=== PATIENT | male | born 1980 | race Caucasian/White ===

== ENCOUNTER 2021-02-16 05:36 | Inpatient (IN) | payer OTHER ==
[~2021-02-16] VITALS: Ht 165.1 cm; Wt 70.0 kg
[2021-02-16 06:02] LABS: COVID AG,FIA SOURCE NASOPHARYNGEAL
[2021-02-16 06:16] LABS: BASOPHILS % (AUTO) 0.6 % (0.0-2.0); EOSINOPHILS % (AUTO) 1.7 % (1.0-6.0); HEMATOCRIT 45.6 % (41-53); HEMOGLOBIN 14.8 g/dL (13.5-17.5); LYMPHOCYTES % (AUTO) 24.9 % (22.0-44.0); MEAN CORPUSCULAR HEMOGLOBIN 28.5 pg (26.0-34.0); MEAN CORPUSCULAR HGB CONC 32.5 G/dL (31.0-37.0); MEAN CORPUSCULAR VOLUME 88 fL (80-100); MONOCYTES # (AUTO) 0.7 K/uL (0.1-1.0); MONOCYTES % (AUTO) 8.5 % (2.0-9.0); NEUTROPHILS # (AUTO) 5.1 K/uL (1.8-7.7); NEUTROPHILS % (AUTO) 64.3 % (40.0-70.0); PLATELET COUNT (AUTO) 271 K/uL (150-450); RED CELL DISTRIBUTION WIDTH 13.1 % (11.5-14.5)
[2021-02-16 06:28] LABS: ANION GAP 8 mmol/L (8-16); CALCIUM, TOTAL 9.5 mg/dL (8.8-10.5); CARBON DIOXIDE 30 mmol/L (22-29); CHLORIDE 102 mmol/L (98-107); CREATININE 0.91 mg/dL (0.60-1.30); GLOMERULAR FILTR. RATE CALC > 60 mL/min (>60); GLUCOSE,RANDOM 106 mg/dL (70-110); POTASSIUM 4.5 mmol/L (3.5-5.1); SODIUM SERUM 140 mmol/L (136-145); UREA NITROGEN, BLOOD 14 mg/dL (7-18)
[2021-02-16 06:30] LABS: ALANINE AMINOTRANSFERASE 35 U/L (12-78); ALBUMIN 4.4 g/dL (3.4-5.0); ALKALINE PHOSPHATASE 80 U/L (46-116); ASPARTATE AMINOTRANSFERASE 18 U/L (15-37); BILIRUBIN,TOTAL 0.3 mg/dL (0.1-1.0); TOTAL PROTEIN, SERUM 8.6 g/dL (6.4-8.2)
[2021-02-16] MEDS ORDERED: 0.9% SODIUM CHLORIDE 10 ML SYRINGE IVP PRN (07:30)
[2021-02-16] MEDS ORDERED: ACETAMINOPHEN 325 MG TABLET PO PRN (07:30)
[2021-02-16] MEDS ORDERED: ONDANSETRON HCL 4 MG/2 ML VIAL IVP PRN (07:30)
[2021-02-16 07:40] LABS: AMPHET/METH SCREEN,URINE NEGATIVE (NEGATIVE); BARBITURATE SCREEN, URINE NEGATIVE (NEGATIVE); BENZODIAZEPINES SCREEN,URINE NEGATIVE (NEGATIVE); CANNABINOID SCREEN,URINE NEGATIVE (NEGATIVE); COCAINE SCREEN,URINE NEGATIVE (NEGATIVE); METHADONE SCREEN, URINE NEGATIVE (NEGATIVE); OPIATE SCREEN,URINE NEGATIVE (NEGATIVE)
[2021-02-16 07:41] LABS: PHENCYCLIDINE SCREEN,URINE NEGATIVE (NEGATIVE)
[2021-02-16] MEDS ORDERED: MAGNESIUM HYDROXIDE SUSPENSION 30 ML UDCUP PO PRN (08:15)
[2021-02-16] MEDS: FAMOTIDINE 20 MG TABLET PO SCH (08:42)
[2021-02-16 17:45] VITALS: BP 114/80
[2021-02-16] MEDS: ACETAMINOPHEN 325 MG TABLET PO PRN (17:54)
[2021-02-16 20:31] VITALS: BP 104/70
[2021-02-17 05:00] VITALS: BP 103/73
[2021-02-17 07:45] LABS: BASOPHILS % (AUTO) 0.7 % (0.0-2.0); EOSINOPHILS % (AUTO) 4.9 % (1.0-6.0); HEMATOCRIT 44.7 % (41-53); HEMOGLOBIN 14.7 g/dL (13.5-17.5); LYMPHOCYTES % (AUTO) 34.8 % (22.0-44.0); MEAN CORPUSCULAR HEMOGLOBIN 28.9 pg (26.0-34.0); MEAN CORPUSCULAR HGB CONC 32.8 G/dL (31.0-37.0); MEAN CORPUSCULAR VOLUME 88 fL (80-100); MONOCYTES # (AUTO) 0.6 K/uL (0.1-1.0); MONOCYTES % (AUTO) 10.4 % (2.0-9.0); NEUTROPHILS # (AUTO) 2.8 K/uL (1.8-7.7); NEUTROPHILS % (AUTO) 49.2 % (40.0-70.0); PLATELET COUNT (AUTO) 246 K/uL (150-450); RED BLOOD CELL COUNT(AUTO) 5.08 MIL/uL (4.50-5.90); RED CELL DISTRIBUTION WIDTH 12.9 % (11.5-14.5)
[2021-02-17 07:46] VITALS: BP 123/79
[2021-02-17 07:51] LABS: ALANINE AMINOTRANSFERASE 32 U/L (12-78); ALKALINE PHOSPHATASE 82 U/L (46-116); ANION GAP 7 mmol/L (8-16); ASPARTATE AMINOTRANSFERASE 18 U/L (15-37); BILIRUBIN,TOTAL 0.5 mg/dL (0.1-1.0); CALCIUM, TOTAL 9.1 mg/dL (8.8-10.5); CARBON DIOXIDE 31 mmol/L (22-29); CHLORIDE 103 mmol/L (98-107); CREATININE 0.98 mg/dL (0.60-1.30); GLOMERULAR FILTR. RATE CALC > 60 mL/min (>60); GLUCOSE,RANDOM 97 mg/dL (70-110); POTASSIUM 4.2 mmol/L (3.5-5.1); SODIUM SERUM 141 mmol/L (136-145); TOTAL PROTEIN, SERUM 7.6 g/dL (6.4-8.2); UREA NITROGEN, BLOOD 13 mg/dL (7-18)
[2021-02-17] MEDS: FAMOTIDINE 20 MG TABLET PO SCH (08:05)
[2021-02-17 15:44] VITALS: BP 126/64
[2021-02-17] MEDS: SERTRALINE HCL 50 MG TABLET PO SCH (16:24)
[2021-02-17 19:57] VITALS: BP 114/76
[2021-02-17] MEDS: ZOLPIDEM TARTRATE 5 MG TABLET PO PRN (20:09)
[2021-02-18 05:19] VITALS: BP 116/74
[2021-02-18 07:23] VITALS: BP 109/60
[2021-02-18] MEDS: FAMOTIDINE 20 MG TABLET PO SCH (09:06)
[2021-02-18] MEDS: SERTRALINE HCL 50 MG TABLET PO SCH (09:06)
[2021-02-18] MEDS: ACETAMINOPHEN 325 MG TABLET PO PRN (14:36)
[2021-02-18 19:34] LABS: GLUCOMETER DEV NAME(LOC) 6N.1; GLUCOSE,POINT OF CARE 108 MG/DL (70-110)
[2021-02-18 20:48] VITALS: BP 107/59
[2021-02-18] MEDS: ZOLPIDEM TARTRATE 5 MG TABLET PO PRN (20:48)
[2021-02-19 04:00] VITALS: BP 113/79
[2021-02-19 08:04] VITALS: BP 111/86
[2021-02-19] MEDS: FAMOTIDINE 20 MG TABLET PO SCH (08:08)
[2021-02-19] MEDS: SERTRALINE HCL 50 MG TABLET PO SCH (08:08)
[2021-02-19 20:20] VITALS: BP 111/72
[2021-02-19] MEDS: ZOLPIDEM TARTRATE 5 MG TABLET PO PRN (20:41)
[2021-02-20 05:53] VITALS: BP 110/71
[2021-02-20 08:01] VITALS: BP 106/75
[2021-02-20] MEDS: FAMOTIDINE 20 MG TABLET PO SCH (08:28)
[2021-02-20] MEDS: SERTRALINE HCL 50 MG TABLET PO SCH (08:28)
[2021-02-20] MEDS: ACETAMINOPHEN 325 MG TABLET PO PRN ×2 (08:31→20:01)
[2021-02-20] MEDS: ZOLPIDEM TARTRATE 5 MG TABLET PO PRN (20:01)
[2021-02-20 21:05] VITALS: BP 114/66
[2021-02-21 05:18] VITALS: BP 112/75
[2021-02-21 07:32] VITALS: BP 114/61
[2021-02-21] MEDS: SERTRALINE HCL 50 MG TABLET PO SCH (08:49)
[2021-02-21] MEDS: FAMOTIDINE 20 MG TABLET PO SCH (08:49)
[2021-02-21] MEDS ORDERED: SERT-158 PO (11:01)
[2021-02-21] MEDS ORDERED: ACET-784 PO (11:02)
[2021-02-21 11:19] VITALS: BP 110/68
== END 2021-02-21 14:15 | DRG 885 ==
LOC: EMS 05:37 → 6S 15:55
PROVIDERS: ADMIT Internal Medicine; ATTEND Internal Medicine
DX: F32.2 Major depressive disorder, single episode, severe without psychotic features (principal); R45.851 Suicidal ideations; Z20.822 Contact with and (suspected) exposure to COVID-19; F41.9 Anxiety disorder, unspecified
CPT/HCPCS: 80053; 82962; 85025; 99285; G0480